=== PATIENT | female | born 1960 | race Caucasian/White ===

== ENCOUNTER 2020-04-30 08:31 | Emergency (ER) | payer BC, SELFPAY ==
--- NOTE | ~2020-04-30 | XR_ITS ---
XR wrist LT min 3V DATE: 04/30/2020 09:02 INDICATION: Fall one day ago. Lateral pain, swelling, bruising TECHNIQUE: 4 views COMPARISON: None FINDINGS: There is a minimally dorsally displaced comminuted fractures of the distal radius with evid ence of intra-articular extension. The distal ulna is intact. Radiocarpal alignment is preserved. IMPRESSION: Minimally dorsally displaced distal radial comminuted intra-articular fracture Reviewed, dictated and finalized at location A. TROMECHANICAL TECHNOLOGIST IMPRESSION: Minimally dorsally displaced distal radial comminuted intra-articul ar fracture
--- NOTE | 2020-04-30 08:39 | ED.UPPEXIN ---
HPI - Extremity Injury (Upper) General Chief Complaint: Extremity Injury, Upper Stated Complaint: left hand injury/fall Time Seen by Provider: 04/30/20 08:39 History of Present Illness HPI narrative: 59 yo female w/ h/o htn, hypothyroidism presents to the ED for a wrist injury. She fell onto her outstretched left hand last night. She had pain in the wrist at the time. It has gotten worse since then. Radiates to the elbow. She developed swelling and bruising over the anterior lateral wrist. She has been taking motrin with some relief. No weakness, numbness. Related Data Home Medications Medication Instructions Recorded Confirmed levothyroxine 04/30/20 Allergies Allergy/AdvReac Type Severity Reaction Status Date / Time No Known Allergies Allergy Unverified 09/03/17 08:15 Review of Systems Review of Systems: All systems reviewed & are unremarkable except as noted in HPI and below Constitutional: Constitutional: Denies weakness Cardiovascular: Cardiovascular: Denies chest pain Respiratory: Respiratory: Denies dyspnea Musculoskeletal: Musculoskeletal: Denies back pain Neurologic: Denies headache(s), Denies numbness and Denies weakness FOR[facility]LY [facility] Past Medical History Medical History HTN (hypertension) Hypothyroidism Family History Family History Father Family history of Dellrose's chorea Hypertension Patient's father is Grandparent Family history of malignant neoplasm of cervix Family history of coronary artery disease Diabetes mellitus Social History Social History Smoking status: Never smoker Second hand tobacco smoke exposure: No Alcohol intake: current Exam Const: General: no acute distress and alert Nutritional Appearance: obese Orientation/consciousness: patient oriented x3 Other: oriented x2 HENMT: Head: normal to inspection Other: nontender Resp: Effort & Inspection: normal respiratory effort Cardio: Rate: regular rate Other: 2 + radial pulses bilaterally Skin: Wounds: no wounds Other: Bruising over left anterior lateral wirst Neuro: General: patient oriented x3, moves all extremities and no focal motor deficits Speech: normal speech Extrem: Other: tenderness over distal radius Course Vital Signs Vital signs: Vital Signs Temperature 36.5 C 04/30/20 09:19 Pulse Rate 74 04/30/20 09:19 Respiratory Rate 18 04/30/20 09:19 Blood Pressure 144/62 H 04/30/20 09:19 Pulse Oximetry 99 04/30/20 09:19 Temperature 36.5 C 04/30/20 09:19 Pulse Rate 74 04/30/20 09:19 Respiratory Rate 18 04/30/20 09:19 Blood Pressure 144/62 H 04/30/20 09:19 Pulse Oximetry 99 04/30/20 09:19 MDM - Extremity Injury (Upper) Medical Records Attestation: I reviewed the patient's medical records. Imaging Data Attestation: I personally reviewed and interpreted this imaging study as follows: My impression: comminuted minimally displaced fracture of distal radius Radiologist's impression: ITS Impressions Wrist X-Ray 04/30/20 09:15 IMPRESSION: Minimally dorsally displaced distal radial comminuted intra-articular fracture Discharge Plan Discharge Clinical Impression: Fracture of wrist Qualifiers: Encounter type: initial encounter Fracture type: closed Laterality: left Qualified Code(s): S62.102A - Fracture of unspecified carpal bone, left wrist, initial encounter for closed fracture Patient Disposition: Home, Self-Care Condition: Stable Instructions: Wrist Fracture in Adults (ED) Prescriptions: New hydrocodone-acetaminophen [[place]] 5-325 mg tablet 1 tablet PO Q4H PRN (Reason: pain) Qty: 10 RF: 0 No Action levothyroxine 88 mcg tablet RF: 0 Follow-up/Referrals: Steve Alatorre MD [Primary Care Provider] - Nicola Carbajal MD [
[2020-04-30 09:19] VITALS: BP 144/62; PULSE 74; RESP 18; TEMP 36.5; O2SAT 99
== END 2020-04-30 10:11 | disposition home or self-care (01) ==
PROVIDERS: Emergency Provider Emergency Medicine; PCP Emergency Medicine
DX: S52.572A Other intraarticular fracture of lower end of left radius, initial encounter for closed fracture (principal); I10 Essential (primary) hypertension; E03.9 Hypothyroidism, unspecified; W19.XXXA Unspecified fall, initial encounter
CPT/HCPCS: 29125; 73110; 99284

== ENCOUNTER 2022-06-24 12:59 | Observation (INO) | payer BC, SELFPAY ==
[2022-06-24] VITALS (27 sets, daily range): BP systolic 114–163; BP diastolic 52–89; PULSE 67–82; RESP 11–21; TEMP 36.6–36.9; O2SAT 95–100; BMI 32.4
--- NOTE | ~2022-06-24 | CT_ITS ---
EXAMINATION: CTA BRAIN/CAROTID DATE: 06/24/2022 16:18 INDICATION: Acute altered mental status TECHNIQUE: Computed tomographic angiography (CTA) of the head and neck was performed with 100 mL Omni paque-350 intravenous contrast. Multiplanar reconstructions and maximum intensity projection 3D-recon structions of the carotid arteries and of the intracranial arteries were created by the technologist on a separate workstation. Automated exposure control and iterative reconstruction technique were emp loyed.The dose-length product was 1177.56 mGy-cm. COMPARISON: Head CT dated 06/24/2022 FINDINGS: Carotid arteries: Visualized portion of the thoracic aorta and great vessels arising from the arch are normal in calibe r with no atherosclerotic plaque or dissection. There is small amount of atherosclerotic plaque with 0% stenosis of the right and left carotid bulbs relative to normal distal artery lumen diameter (NASC ET criteria). Calcified mediastinal lymph node consistent with old granulomatous disease. Visualized superior mediastinum and soft tissues of the neck are unremarkable. Visualized portions of the lungs are clear. Intracranial arteries Dense streak artifact centered at the tip of the basilar artery likely representing embolization coil ing of a basilar tip aneurysm. No other aneurysms identified. Atherosclerotic plaque at the bilateral carotid siphons without hemodynamically significant stenosis. There is no hemodynamically significan t stenosis in the vertebral, basilar and internal carotid arteries. Vertebral arteries are codominant . Both A1 and P1 segments are patent. Cerebral arterial arborization appears symmetric. No abnormally enhancing brain lesions. IMPRESSION: 1. 0% stenosis of the right and left carotid bulbs relative to normal distal artery lumen diameter (N ASCET criteria). 2. Metallic density at the tip of the basilar artery likely representing embolization coiling of a ba silar tip aneurysm. Otherwise unremarkable cerebral CT angiogram with no other aneurysms, hemodynamic ally significant stenosis or thrombosis. Reviewed, dictated and finalized at location B. AND GAS PRINCIPAL IMPRESSION: 1. 0% stenosis of the right and left carotid bulbs relative to normal distal ar [place] lumen diameter (NASCET criteria). 2. Metallic density at the tip of the basilar artery likely representing emboli zation coiling of a basilar tip aneurysm. Otherwise unremarkable cerebral CT an giogram with no other aneurysms, hemodynamically significant stenosis or thromb osis.
--- NOTE | ~2022-06-24 | XR_ITS ---
EXAMINATION: XR chest 1V DATE: 06/24/2022 13:38 INDICATION: Altered mental status. Confusion. TECHNIQUE: A single frontal view of the chest was obtained. COMPARISON: Chest single view 01/26/2016 FINDINGS: The chest demonstrates clear lungs without pneumonia, pleural effusion, or pneumothorax. Th e heart size is normal. IMPRESSION: 1. No acute cardiopulmonary disease. Reviewed, dictated and finalized at location A. TRIC TAPE SLITTER
--- NOTE | ~2022-06-24 | CT_ITS ---
Non-contrast Head CT History: Altered mental status, confusion Technique: Axial non-contrast imaging of the brain was performed. Dose reduction technique was used on this scan by utilizing automated exposure control and iterative reconstruction technique. The dose -length product (DLP) was 605.33 mGy-cm. Findings: There is no evidence of intracranial hemorrhage, mass lesion, or acute infarct. There are aneurysm coils in the region of the [place]. Brain parenchyma appears normal. The ventricle s and subarachnoid spaces are normal in size. The calvarium appears normal. The visualized paranasa l sinuses and mastoid air cells are clear. Impression: No acute abnormality seen. Aneurysm coils in the [place] region with associated streak artifact. Reviewed, dictated and finalized at location M. ANALYTICS ARCHITECT Impression: No acute abnormality seen. Aneurysm coils in the [place] region with associated streak artifact.
--- NOTE | 2022-06-24 13:05 | ECG_ITS ---
Measurements Intervals [place] Rate: 67 P: 17 MT: 200 QRS: 34 QRSD: 93 T: 38 QT: 363 QTc: 384 Interpretive Statements SINUS RHYTHM BASELINE WANDER- II, III, AVR, AVL, AVF, V1 NORMAL ECG NO PREVIOUS ECG AVAILABLE FOR COMPARISON Electronically Signed On 06-24-2022 13:59:45 [employer] by Derek Jesus D.O.
[2022-06-24 13:12] LABS: Glucose Point of Care 85 mg/dl (65-105)
[2022-06-24 14:03] LABS: Basophils Absolute Auto 0.1 K/mm3 (0.0-0.1); Basophils Percent Auto 0.8 % (0.2-1.2); Eosinophils Absolute Auto 0.1 K/mm3 (0-0.3); Eosinophils Percent Auto 1.2 % (0-4.4); Hematocrit 41.5 % (37.0-47.0); Hemoglobin 13.4 g/dL (12.0-15.0); Immature Granulocyte Absolute 0.08 K/mm3 (0.00-0.031); Immature Granulocyte Percent A 0.9 % (0-0.5); Lymphocytes Absolute Auto 1.78 K/mm3 (0.9-3.2); Lymphocytes Percent Auto 19.8 % (18.3-44.2); Mean Corpuscular HGB Conc 32.3 g/dl (32-36); Mean Corpuscular Hemoglobin 28.8 pg (26-34); Mean Corpuscular Volume 89.1 fl (80-100); Mean Platelet Volume 10.1 fl (7.4-10.4); Monocytes Absolute Auto 0.8 K/mm3 (0.1-0.6); Monocytes Percent Auto 8.7 % (2.6-8.5); Neutrophils Absolute Auto 6.2 K/mm3 (1.3-6.7); Neutrophils Percent Auto 68.6 % (45.5-73.1); Platelet Count Result 238 k/mm3 (150-375); Red Blood Count 4.66 M/mm3 (4.2-5.4); Red Cell Distribution Width 12.2 % (11.5-14.5)
[2022-06-24 14:14] LABS: Alanine Aminotransferase 40 U/L (6-35); Albumin Level 4.2 g/dL (3.5-5.1); Alkaline Phosphatase 75 U/L (38-126); Anion Gap 7 mmol/L (8-16); Aspartate Amino Transferase 33 U/L (14-36); Bilirubin,Total 0.4 mg/dL (0.2-1.3); Blood Urea Nitrogen 20 mg/dL (7-17); Carbon Dioxide 27 mmol/L (22-30); Chloride 107 mmol/L (98-107); Estimated CRCL calculation 69 ml/min; Estimated Glomerular Filt Rate > 60; Glucose 95 mg/dL (65-110); Potassium 4.1 mmol/L (3.4-5.0); Sodium 141 mmol/L (137-145)
[2022-06-24 14:15] LABS: Partial Thromboplastin Time 30.4 SECONDS (22.3-36.8)
[2022-06-24 14:25] LABS: Troponin I < 0.012 ng/mL (0.000-0.034)
--- NOTE | 2022-06-24 14:37 | ED.AMS ---
HPI - Altered Mental Status General Chief Complaint: Altered Mental Status Stated Complaint: AMS Time Seen by Provider: 06/24/22 14:21 Source: family Mode of arrival: ambulatory Limitations: altered mental status (Pt with memory loss) History of Present Illness HPI narrative: This 61 year old female patient with significant PMH of brain aneurysm s/p coiling at [facility] a couple of years ago, presents to the ER brought by her spouse with complaints of acute memory loss. Last known well was now 2.5-3 hrs ago. She was at [employer] and was working out when she suddenly forgot what she was doing and messaged her spouse who then called her and she was unaware of what she was doing, how to get home, and cannot remember anything about today or yesterday. She continually asks her spouse the same questions of what is going on, where she is and why is she here. She is alert and oriented to her name and birthday only for me, and answers that it is 2006. She remembers no events of this morning and afternoon to this point. She has not had any head injuries and no trauma. No CP, dyspnea. MD complaint: altered mental status Onset (ago): hour(s) (2-3) Timing confirmed by: spouse Consistency of symptoms: constant Associated symptoms: denies other symptoms Related Data Home Medications Medication Instructions Recorded Confirmed aspirin 325 mg tablet 325 mg PO DAILY 12/04/21 05/15/22 cholecalciferol (vitamin D3) 50 50 mcg PO DAILY 12/04/21 05/15/22 mcg (2,000 unit) capsule magnesium 200 mg tablet 400 mg PO DAILY 12/04/21 05/15/22 omega-3 fatty acids 1,000 mg 1,000 mg PO DAILY 12/04/21 05/15/22 capsule omeprazole 20 mg capsule,delayed 20 mg PO DAILY 03/14/22 05/15/22 release Allergies Allergy/AdvReac Type Severity Reaction Status Date / Time No Known Allergies Allergy Verified 05/15/22 08:13 Review of Systems Review of Systems: All systems reviewed & are unremarkable except as noted in HPI and below PMFSH Past Medical History Medical History Allergies Anemia Arthritis Brain aneurysm History of multiple miscarriages HTN (hypertension) Hypothyroidism Left wrist fracture Mixed hyperlipidemia On statin therapy Thyroid disorder Surgical History Surgical History Hx of cholecystectomy Hx of wisdom tooth extraction S/P appendectomy S/P coil embolization of cerebral aneurysm S/P dilation and curettage x2 S/P endometrial ablation S/P wrist surgery Tubal ligation status Family History Family History Father Family history of Otoe's chorea Hypertension Patient's father is Grandparent Family history of malignant neoplasm of cervix Family history of coronary artery disease Diabetes mellitus Social History Social History Social History: Smoking status: Never smoker Second hand tobacco smoke exposure: No Alcohol intake: current Alcohol use details: Occasionally Substance use: never Substance use type: does not use Living arrangements: with family Occupation/Education: occupation Gender identity (if verbalized by the patient): Female Sexual Orientation (if Verbalized by the Patient): Straight or Heterosexual Exam Const: General: healthy appearing, alert and confusion Nutritional Appearance: well nourished Orientation/consciousness: No patient oriented x3 (to self and birthdate only.) Limitations: altered mental status (Pt. having acute amnesia.) HENMT: Head: normal to inspection Face/Nose/Sinus: Normal external nose present Face and sinus: normal facial exam Mouth: Yes Normal oral and palatal mucosa present and Yes moist mucous membranes Teeth and gingiva: dentition normal Throat: posterior oropharynx normal and uvula midl
[2022-06-24] MEDS: ACETAMINOPHEN 500 MG TABLET 1000 MG PO (16:46)
[2022-06-24 18:33] LABS: Influenza A QL RT-PCR Negative (Negative); Influenza B QL RT-PCR Negative (Negative); SARS-CoV-2 RNA PCR Negative
--- NOTE | 2022-06-24 22:00 | PM.IMHP ---
H&P: HPI History of Present Illness Date/Time: 06/24/22 22:00 Chief Complaint: Confusion. Narrative: This is a pleasant 61-year-old female with history of cerebral aneurysm status post coiling, hypertension, hyperlipidemia, and hypothyroidism who presented to the emergency department via private vehicle for evaluation of confusion. Patient provides the following history. Her fiance provided additional information due to the patient's confusion regarding events that transpired earlier today. Didier reports that she was in her usual state of health this morning and she went to the gym. While working out she suddenly for got which she was doing and message her fiance that she was confused, did not know where she was, why she was there, or how she was supposed to get home. She was given answers and continued to repeat the same questions over and over again. She had never exhibited similar symptoms in the past. No recent illnesses. There was no loss of consciousness. She has not had any recent accidents or head trauma. No drug or alcohol abuse. She denies recent change in medications. On arrival to the emergency department she was able to give her name and birthday and she reported the year as 2006. Blood pressure on arrival was 156/89. Her other vital signs were stable and she was afebrile. Brain CT showed no acute abnormality. CT of the head and neck showed 0% stenosis of the bilateral carotid bulbs, metallic density at the tip of the basilar artery consistent with history of coiling aneurysm, and an otherwise unremarkable cerebral CT angiogram. Labs did not show any significant abnormalities. EKG was unremarkable. She is being admitted in this setting for close monitoring overnight and neurology consultation. At the time my evaluation she still does not recall the events that transpired today. Review of Systems Review of Systems: Reviewed but not reliable given confusion. [facility] Past Medical History Medical History (Updated 06/24/22 @ 22:52 by Pilar Robles PA-C) Allergies Anemia Arthritis Brain aneurysm History of multiple miscarriages Hypertension Hypothyroidism Mixed hyperlipidemia Surgical History Surgical History (Updated 06/24/22 @ 22:51 by Pilar Robles PA-C) History of appendectomy History of cerebral aneurysm repair History of cholecystectomy History of dilation and curettage History of endometrial ablation History of tubal ligation Family History Family History Father Family history of Marvin's chorea Patient's father is Hypertension Parents Grandparent Diabetes mellitus Family history of malignant neoplasm of cervix Family history of coronary artery disease Mother Parents Social History Social History (Updated 06/25/22 @ 00:27 by Pilar Robles PA-C) Social History: Surrogate medical decision maker: Igor Hammer, narciso. Code status: Full code. Smoking status: Never smoker Second hand tobacco smoke exposure: No Alcohol intake: never Alcohol use details: Occasionally Substance use: never Substance use type: does not use Lack of Transportation: No Lack of Food: Never True Current Housing: I Have Housing Concerned About Future Housing: No Difficulty Paying Gas/Electric Bills: No Difficulty Paying for Meds: No Currently Unemployed: No Education: Bachelor's Degree Difficulty w/ Childcare or Family Care: No Additional living arrangements comments: Lives in [place]. Spiritual care concerns: No Meds Home Medications and Allergies Home Medications Medication Instructions Recorded Confirmed Type aspirin 325 mg tablet 325 mg PO DAILY 12/04/21 06/24/22 History cholecalciferol (vitamin D3) 50 50 mcg PO DAILY 12/04/21 06/24/22 History mcg (2,000 unit) capsule omeprazole 20 mg capsule,delayed 20 mg PO DAILY 03/14/22 06/24/22 History release
--- NOTE | 2022-06-24 22:07 | ADMGEN ---
This patient, Consuelo Hammer, was admitted to [facility] Surg Room 307-02. Patient/family oriented to hospital policies and general routines including ID bracelet, bed and alarms, visiting hours, pain management, procedures, bathroom and other care routines, personal items, smoking policy, room service/diet, and visiting hours. Information on how to activate the Rapid Response Team has been discussed. Patient/Family are encouraged to report perceived risks to care and to ask questions if they do not understand what they are told or what they should do.
[2022-06-24] MEDS: HYDROcodone/acetaminophen (*CRX) 5-325 MG TABLET 1 TAB PO (22:26)
[2022-06-25] VITALS (10 sets, daily range): BP systolic 102–125; BP diastolic 50–66; PULSE 61–78; RESP 16–18; TEMP 35.8–37.1; O2SAT 97–100
[2022-06-25] MEDS: LIOTHYRONINE SODIUM 5 MCG TABLET BY MOUTH (05:48)
[2022-06-25] MEDS: LEVOTHYROXINE SODIUM 88 MCG TABLET BY MOUTH (05:48)
[2022-06-25 06:42] LABS: Anion Gap 6 mmol/L (8-16); Blood Urea Nitrogen 17 mg/dL (7-17); Calcium 8.8 mg/dL (8.4-10.2); Carbon Dioxide 26 mmol/L (22-30); Chloride 108 mmol/L (98-107); Estimated CRCL calculation 62 ml/min; Estimated Glomerular Filt Rate > 60; Glucose 80 mg/dL (65-110); Magnesium 2.2 mg/dL (1.6-2.3); Potassium 3.9 mmol/L (3.4-5.0); Sodium 140 mmol/L (137-145)
[2022-06-25] MEDS: ACETAMINOPHEN 325 MG TABLET 650 MG PO (09:29)
[2022-06-25] MEDS: PANTOPRAZOLE 40 MG TABLET PO (09:30)
[2022-06-25] MEDS: CHOLECALCIFEROL 1,000 UNITS TABLET 2000 UNITS PO (09:30)
[2022-06-25] MEDS: ROSUVASTATIN 5 MG TABLET BY MOUTH (09:30)
[2022-06-25] MEDS: ASPIRIN 325 MG TABLET PO (09:30)
[2022-06-25] MEDS: METOPROLOL TARTRATE 50 MG TAB BY MOUTH ×3 (09:30→21:15)
[2022-06-25] MEDS: HYDROcodone/acetaminophen (*CRX) 5-325 MG TABLET 1 TAB PO (11:29)
[2022-06-25 12:22] LABS: Free T4 Free Thyroxine 1.04 ng/mL (0.78-2.19)
--- NOTE | 2022-06-25 12:44 | WPDNEURCNPN ---
Assessment and Plan Assessment and plan (1) Transient global amnesia: Code(s): G45.4 - Transient global amnesia Status: Acute Plan 1 transient global amnesia 2 hypertension 3 hyperlipidemia 4 hypothyroidism 5 extremely unlikely but obtain the EEG to rule out the possibility of any abnormality. Patient and her were both advised that we are dealing with a transient global amnesia the while itself is intact she will continue the same medication will obtain the EEG and she should follow up with her surgeon at [facility] all the pros and cons of this particular problem were also discussed Consult date: 06/25/22 Reason for consult: 61 years old lady admitted to the hospital through the emergency room for the complaints of in the mental status with memory loss in addition to the history of brain aneurysm for which she has undergone coiling under central stenosis the hospital neurosurgical service. She complained of acute memory loss for almost 2 and half [id number] ago reportedly she was at [employer] and was working out when she suddenly forgot what she was doing and and message to her a spouse who then called her and found that she was unaware of what she was doing, how to get home and was unable to remember anything on the day of admission or yesterday and she kept asking same question again and again give no history of recent head trauma no history of seizures her medications included aspirin 325 mg daily he had history of hypertension hypothyroidism, his statin therapy and coil embolization of cerebral aneurysm also no smoking but occasionally alcohol intake initial exam in the ER was nonfocal, emergency room personnel contacted the sent to [facility] who suggested to keep her here we obtain the CTA of the brain documented any new involvement of the vasculature but it documented only metallic density at the tip of the basilar artery Prieb presenting embolization coiling of a basilar tip aneurysm but no other abnormalities patient will continue on aspirin 325 mg daily and all her other medication as such HPI: Consuelo Hammer is a 61 year old female Review of Systems Review of Systems: All systems reviewed & are unremarkable except as noted in HPI and below PMFSH Past Medical History Medical History (Updated 06/24/22 @ 22:52 by Pilar Robles PA-C) Allergies Anemia Arthritis Brain aneurysm History of multiple miscarriages Hypertension Hypothyroidism Mixed hyperlipidemia Surgical History Surgical History (Updated 06/24/22 @ 22:51 by Pilar Robles PA-C) History of appendectomy History of cerebral aneurysm repair History of cholecystectomy History of dilation and curettage History of endometrial ablation History of tubal ligation Family History Family History Father Family history of Storey's chorea Patient's father is Hypertension Parents Grandparent Diabetes mellitus Family history of malignant neoplasm of cervix Family history of coronary artery disease Mother Parents Social History Social History (Updated 06/25/22 @ 00:27 by Pilar Robles PA-C) Social History: Surrogate medical decision maker: Igor Hammer, son. Code status: Full code. Smoking status: Never smoker Second hand tobacco smoke exposure: No Alcohol intake: never Alcohol use details: Occasionally Substance use: never Substance use type: does not use Lack of Transportation: No Lack of Food: Never True Current Housing: I Have Housing Concerned About Future Housing: No Difficulty Paying Gas/Electric Bills: No Difficulty Paying for Meds: No Currently Unemployed: No Education: Bachelor's Degree Difficulty w/ Childcare or Family Care: No Additional living arrangements comments: Lives in [place]. Spiritual care concerns: No Meds Home Medication
--- NOTE | 2022-06-25 13:15 | PM.IMPN ---
Progress Note: A&P Assessment and Plan (1) Transient global amnesia: Code(s): G45.4 - Transient global amnesia Status: Acute (2) Hypertension: Code(s): I10 - Essential (primary) hypertension Status: Acute (3) Mixed hyperlipidemia: Code(s): E78.2 - Mixed hyperlipidemia Status: Acute (4) Hypothyroidism: Qualifiers: Hypothyroidism type: acquired Qualified Code(s): E03.9 - Hypothyroidism, unspecified Code(s): E03.9 - Hypothyroidism, unspecified Status: Acute Plan The patient presented to the ED today for evaluation of confusion as per HPI. Transient global amnesia is a strong possibility given her amnesia, repetitive questioning, and the fact that she was exercising at the onset. Labs and imaging were personally reviewed and there are no significant or acute findings to explain her confusion. She was negative for influenza and COVID. EKG showed a sinus rhythm and there have been no documented episodes of cardiac dysrhythmia. She will be monitored on telemetry overnight. Continue neurologic checks q.4 hours. Check TSH, urine drug screen, and B12. Dr. Bedolla (neurology) has been consulted and his opinion is greatly appreciated. Blood pressures were reviewed and they were initially in the 140s to 150 systolic but they have improved. Continue antihypertensives and monitor blood pressures closely. She was recently started on liothyronine in addition to levothyroxine thus will check TSH, T3, and T4. Her home medications will be reviewed and resumed as appropriate. 06/25/2022 interval history: Patient presented with transient global amnesia patient states see still does not remember detail of yesterday however currently she has no problem and she has her baseline, CTA of the head is essentially normal without any stenosis or lesion, patient cannot have MRI because of the previous brain surgery, patient seen by Neurology and recommended to further evaluate patient will benefit from EEG, patient vitamin B12 is normal, patient TSH is normal, will follow-up, will have PT OT evaluate the patient and further recommendation to follow. Subjective Date/time seen: 06/25/22 13:15 Confusion. HPI-Narrative: This is a pleasant 61-year-old female with history of cerebral aneurysm status post coiling, hypertension, hyperlipidemia, and hypothyroidism who presented to the emergency department via private vehicle for evaluation of confusion. Patient provides the following history. Her fiance provided additional information due to the patient's confusion regarding events that transpired earlier today. Didier reports that she was in her usual state of health this morning and she went to the gym. While working out she suddenly for got which she was doing and message her fiance that she was confused, did not know where she was, why she was there, or how she was supposed to get home. She was given answers and continued to repeat the same questions over and over again. She had never exhibited similar symptoms in the past. No recent illnesses. There was no loss of consciousness. She has not had any recent accidents or head trauma. No drug or alcohol abuse.? She denies recent change in medications. On arrival to the emergency department she was able to give her name and birthday and she reported the year as 2006. Blood pressure on arrival was 156/89. Her other vital signs were stable and she was afebrile. Brain CT showed no acute abnormality. CT of the head and neck showed 0% stenosis of the bilateral carotid bulbs, metallic density at the tip of the basilar artery consistent with history of coiling aneurysm, and an otherwise unremarkable cerebral CT angiogram. Labs did not show any significant abnormalities. EKG was unremarkable. She is being admitted in this setting for close monitoring overnight and neurology consultation. At the time my evaluation she still does not recall the events that transpired today. 06/25/2022 interv
--- NOTE | 2022-06-25 15:57 | PM.DS ---
DS: Admitting Diagnosis Discharge Date 06/28/2022 Admitting Diagnosis confused DS: Discharge Diagnosis Discharge Diagnosis (1) Transient global amnesia: Code(s): G45.4 - Transient global amnesia Status: Acute (2) Hypertension: Code(s): I10 - Essential (primary) hypertension Status: Acute (3) Mixed hyperlipidemia: Code(s): E78.2 - Mixed hyperlipidemia Status: Acute (4) Hypothyroidism: Qualifiers: Hypothyroidism type: acquired Qualified Code(s): E03.9 - Hypothyroidism, unspecified Code(s): E03.9 - Hypothyroidism, unspecified Status: Acute Plan The patient presented to the ED today for evaluation of confusion as per HPI. Transient global amnesia is a strong possibility given her amnesia, repetitive questioning, and the fact that she was exercising at the onset. Labs and imaging were personally reviewed and there are no significant or acute findings to explain her confusion. She was negative for influenza and COVID. EKG showed a sinus rhythm and there have been no documented episodes of cardiac dysrhythmia. She will be monitored on telemetry overnight. Continue neurologic checks q.4 hours. Check TSH, urine drug screen, and B12. Dr. Bedolla (neurology) has been consulted and his opinion is greatly appreciated. Blood pressures were reviewed and they were initially in the 140s to 150 systolic but they have improved. Continue antihypertensives and monitor blood pressures closely. She was recently started on liothyronine in addition to levothyroxine thus will check TSH, T3, and T4. Her home medications will be reviewed and resumed as appropriate. 06/25/2022 interval history: Patient presented with transient global amnesia patient states see still does not remember detail of yesterday however currently she has no problem and she has her baseline, CTA of the head is essentially normal without any stenosis or lesion, patient cannot have MRI because of the previous brain surgery, patient seen by Neurology and recommended to further evaluate patient will benefit from EEG, patient vitamin B12 is normal, patient TSH is normal, will follow-up, will have PT OT evaluate the patient and further recommendation to follow. DS: Summary Hospital Course Reason for hospitalization: Confusion. Narrative: This is a pleasant 61-year-old female with history of cerebral aneurysm status post coiling, hypertension, hyperlipidemia, and hypothyroidism who presented to the emergency department via private vehicle for evaluation of confusion. Patient provides the following history. Her fiance provided additional information due to the patient's confusion regarding events that transpired earlier today. Didier reports that she was in her usual state of health this morning and she went to the gym. While working out she suddenly for got which she was doing and message her fiance that she was confused, did not know where she was, why she was there, or how she was supposed to get home. She was given answers and continued to repeat the same questions over and over again. She had never exhibited similar symptoms in the past. No recent illnesses. There was no loss of consciousness. She has not had any recent accidents or head trauma. No drug or alcohol abuse.? She denies recent change in medications. On arrival to the emergency department she was able to give her name and birthday and she reported the year as 2006. Blood pressure on arrival was 156/89. Her other vital signs were stable and she was afebrile. Brain CT showed no acute abnormality. CT of the head and neck showed 0% stenosis of the bilateral carotid bulbs, metallic density at the tip of the basilar artery consistent with history of coiling aneurysm, and an otherwise unremarkable cerebral CT angiogram. Labs did not show any significant abnormalities. EKG was unremarkable. She is being admitted in this setting for close monitoring overnight and neurology consultation. At th
[2022-06-25] MEDS: polyethylene glycoL 3350 17 GM POWD.PACK PO (17:13)
[2022-06-26] VITALS (7 sets, daily range): BP systolic 122–128; BP diastolic 64–77; PULSE 62–76; RESP 12–16; TEMP 36.2–36.6; O2SAT 98–99
[2022-06-26 05:44] LABS: Amphetamine Screen Urine Negative (Negative); Barbiturate Screen Urine Negative (Negative); Benzodiazepines Screen Urine Negative (Negative); Cannabinoid Screen Urine Negative (Negative); Cocaine Screen Urine Negative (Negative); Methadone Screen Urine Negative (Negative); Opiate Screen Urine Positive (Negative); Phencyclidine Screen Urine Negative (Negative)
[2022-06-26] MEDS: LEVOTHYROXINE SODIUM 88 MCG TABLET BY MOUTH (05:47)
[2022-06-26] MEDS: LIOTHYRONINE SODIUM 5 MCG TABLET BY MOUTH (05:47)
[2022-06-26 06:24] LABS: Hematocrit 39.7 % (37.0-47.0); Hemoglobin 12.9 g/dL (12.0-15.0); Mean Corpuscular HGB Conc 32.5 g/dl (32-36); Mean Corpuscular Hemoglobin 28.9 pg (26-34); Mean Corpuscular Volume 88.8 fl (80-100); Mean Platelet Volume 10.1 fl (7.4-10.4); Platelet Count Result 228 k/mm3 (150-375); Red Blood Count 4.47 M/mm3 (4.2-5.4); Red Cell Distribution Width 12.1 % (11.5-14.5); White Blood Count 7.7 K/mm3 (4.5-10.0)
[2022-06-26 06:39] LABS: Alanine Aminotransferase 41 U/L (6-35); Albumin Level 3.6 g/dL (3.5-5.1); Alkaline Phosphatase 74 U/L (38-126); Anion Gap 7 mmol/L (8-16); Aspartate Amino Transferase 33 U/L (14-36); Bilirubin,Total 0.5 mg/dL (0.2-1.3); Blood Urea Nitrogen 17 mg/dL (7-17); Calcium 8.6 mg/dL (8.4-10.2); Carbon Dioxide 26 mmol/L (22-30); Chloride 107 mmol/L (98-107); Estimated CRCL calculation 70 ml/min; Estimated Glomerular Filt Rate > 60; Glucose 87 mg/dL (65-110); Magnesium 2.1 mg/dL (1.6-2.3); Sodium 140 mmol/L (137-145)
[2022-06-26] MEDS: PANTOPRAZOLE 40 MG TABLET PO (09:21)
[2022-06-26] MEDS: ROSUVASTATIN 5 MG TABLET BY MOUTH (09:21)
[2022-06-26] MEDS: CHOLECALCIFEROL 1,000 UNITS TABLET 2000 UNITS PO (09:21)
[2022-06-26] MEDS: METOPROLOL TARTRATE 50 MG TAB BY MOUTH (09:21)
[2022-06-26] MEDS: polyethylene glycoL 3350 17 GM POWD.PACK PO (09:21)
[2022-06-26] MEDS: ASPIRIN 325 MG TABLET PO (09:21)
--- NOTE | 2022-06-26 11:32 | WPDNEUROLOGY ---
Neurology EEG Report General Information Date of Study: 06/26/22 TEST eeg DIAGNOSIS Transient global amnesia CONDITION OF RECORDING awake drowsy and sleep EEG NUMBER [id number] CLINICAL HISTORY patient had 1 episode of transient amnesia 2 days ago right now she feels fine. EEG DESCRIPTION basic resting occipital frequency consists of low-voltage 8 to 10 hertz per 2nd alpha admixed with low-voltage 15 to 18 hertz per 2nd beta. Low-voltage beta activity seen diffusely admixed with waxing and waning posterior alpha rhythm during drowsiness. Bilateral symmetrical sleep activity seen during sleep. Hyperventilation not done. Photic stimulation not done. Non paroxysmal. Nonfocal. Nonlateralizing. IMPRESSION Normal record
[2022-06-30 06:16] LABS: Triiodothyronine T3 Free 2.8 pg/mL (2.3-4.2)
== END 2022-06-26 15:05 | disposition home or self-care (01) ==
LOC: ANHED 17:07 → ANH3MEDSUR 06-25 11:33
PROVIDERS: Emergency Medicine; Physician Assistant; Admitting Provider Family Medicine; Emergency Provider Nurse Practitioner Adult Health; PCP Family Medicine; Visit Provider Family Medicine
DX: G45.4 Transient global amnesia (principal); I10 Essential (primary) hypertension; E78.2 Mixed hyperlipidemia; E03.9 Hypothyroidism, unspecified; D64.9 Anemia, unspecified; E78.5 Hyperlipidemia, unspecified; F10.90 Alcohol use, unspecified, uncomplicated; E66.8 Other obesity; R42 Dizziness and giddiness; Z68.33 Body mass index [BMI] 33.0-33.9, adult; Z20.822 Contact with and (suspected) exposure to COVID-19; M19.90 Unspecified osteoarthritis, unspecified site; Z86.79 Personal history of other diseases of the circulatory system; I67.1 Cerebral aneurysm, nonruptured; Z87.898 Personal history of other specified conditions; Z79.82 Long term (current) use of aspirin; Z79.899 Other long term (current) drug therapy
CPT/HCPCS: 36415; 70450; 70496; 70498; 71045; 80048; 80053; 80307; 82607; 82948; 83735; 84439; 84443; 84481; 84484; 85025; 85027; 85610; 85730; 87636; 93005; 95816; 99285; A9270; G0378; Q9967

== ENCOUNTER 2022-10-07 10:27 | Outpatient (CLI) | payer BC, SELFPAY ==
--- NOTE | 2022-10-07 16:58 | P.PCNPFT_ITS ---
PFT Procedure Performed PFT Procedure Performed Plethysmography (Lung Vol) Diffusing Cap (DLCO) Flow Vol Loop Spirometry w/o Bronchodil PFT Interpretation This is a pulmonary function test with spirometry, plethysmography and diffusing capacity. The test was performed and results interpreted in accordance with the 2019 and 2005 ATS/ERS Task Force guidelines respectively using the Global Lung Function Initiative-2012 reference equations. Patient demonstrated good effort and cooperation. Reproducibility criteria were met. The quality of the spirometry maneuver was Grade A. Findings: Spirometry: The contour the inspiratory and expiratory flow tracing are normal. The FVC is 3.08 L, 98% predicted. The FEV1 is 2.50 L, 101% predicted. The FEV1: FVC ratio is 81%. Plethysmography: The total lung capacity is 4.61 L, 91% predicted. The functional residual capacity is 2.10 L, 73% predicted. The residual volume is 1.53 L, 76% predicted. Diffusing capacity: The diffusing capacity unadjusted for hemoglobin and carboxyhemoglobin is 18.3, 85% predicted. The diffusing capacity adjusted for a lveolar volume is 4.55, 103% predicted. Impression: The spirometry is normal without evidence of an obstructive abnormality. The lung volumes are normal. The diffusing capacity is normal. There are no prior studies for comparison
== END 2022-10-07 10:28 | disposition home or self-care (01) ==
LOC: ANHPFT 10:28
PROVIDERS: PCP Family Medicine; Visit Provider Nurse Practitioner Adult Health
DX: R07.89 Other chest pain (principal)
CPT/HCPCS: 94375; 94726; 94729

== ENCOUNTER 2024-01-06 08:13 | Outpatient (CLI) | payer BC, SELFPAY ==
--- NOTE | ~2024-01-06 | CT_ITS ---
CTA brain Ordering provider: Stefanie Zavala PA-C History: . H53.9 - Unspecified visual disturbance . Comparison: June 24, 2022 Technique: CT angiogram head was performed following timed intravenous injection of contrast. Thin sl ice axial images and reformatted coronal images were obtained. Three dimensional reformatted images o f the brain were also obtained using a [employer] workstation. Radiation reduction technique utilized. D LP is 1129.85 mGy-cm. 100 mL Omnipaque 350 was given IV. FINDINGS: --ANTERIOR AND MIDDLE CEREBRAL ARTERIES AND BRANCHES: Normal caliber and contour. --INTERNAL CAROTID ARTERIES: Mild atheromatous disease but no significant stenosis. No occlusion. --BASILAR ARTERY AND BRANCHES: Normal caliber and contour. No atheromatous disease. --POSTERIOR CEREBRAL ARTERIES: Normal caliber and contour --POSTERIOR COMMUNICATING ARTERIES: Not visualized which is probably related to congenital absence or small size. --ANEURYSM: None visualized. --BRAIN: Post coiling changes seen in the basilar tip area. No evidence of acute infarct or hemorrhag e seen in the brain. --BONES AND SUPERFICIAL SOFT TISSUES: Normal. --PARANASAL SINUSES AND MASTOIDS: Well aerated. IMPRESSION: Status post coiling of the basilar tip aneurysm. Otherwise, Normal CTA head. Reviewed, dictated and finalized at location A.
[2024-01-06 09:55] LABS: Estimated Glomerular Filt Rate > 60
== END 2024-01-06 08:14 | disposition home or self-care (01) ==
PROVIDERS: PCP Family Medicine; Visit Provider Student in an Organized Health Care Education/Training Program
DX: H53.9 Unspecified visual disturbance (principal); I67.1 Cerebral aneurysm, nonruptured
CPT/HCPCS: 70496; Q9967

== ENCOUNTER 2024-06-14 14:26 | Observation (INO) | payer BC, SELFPAY ==
--- NOTE | ~2024-06-14 | XR_ITS ---
EXAMINATION: XR chest 1V portable DATE: 06/14/2024 16:40 INDICATION: Mental status change. TECHNIQUE: A single frontal view of the chest was obtained. COMPARISON: Chest single view 06/24/2022 FINDINGS: There is no pneumonia, pleural effusion, or pneumothorax. The heart size is normal. IMPRESSION: 1. No acute cardiopulmonary disease. Reviewed, dictated and finalized at location A. Y HELPER
--- NOTE | ~2024-06-14 | CT_ITS ---
EXAMINATION: CT brain wo con DATE: 06/14/2024 15:13 INDICATION: Altered mental status TECHNIQUE: Computed tomography (CT) of the head was performed without intravenous contrast. Sagittal and coronal reconstructions were performed. The mA was adjusted according to patient size. Iterative reconstruction technique was employed. The dose-length product was 605.33 mGy-cm. COMPARISON: head CT dated 01/06/2024 FINDINGS: Again seen is prominent metallic streak artifact surrounding likely aneurysm coils in the region of t he basilar tip. No acute intracranial hemorrhage, acute infarction or abnormal extra axial fluid sherwin ection. Ventricles are normal and symmetric. No mass/mass effect. The orbits, paranasal sinuses and m astoid air cells are normal. IMPRESSION: 1. Likely aneurysm coils in the region of the basilar tip. No acute intracranial process. Reviewed, dictated and finalized at location B. ENGINEER FREIGHT IMPRESSION: 1. Likely aneurysm coils in the region of the basilar tip. No acute intracrania l process.
--- NOTE | ~2024-06-14 | CT_ITS ---
CTA brain carotid Ordering provider: Gila Samuel MD History: . Amnesia . Comparison: 01/06/2024 Technique: CT angiogram head and neck was performed following timed intravenous injection of contrast . Thin slice axial images and reformatted coronal images were obtained. Three dimensional reformatted images of the brain were also obtained using a [employer] workstation. DLP: 1131 mGy-cm FINDINGS: HEAD: --ANTERIOR AND MIDDLE CEREBRAL ARTERIES AND BRANCHES: Normal caliber and contour. --INTRACRANIAL INTERNAL CAROTID ARTERIES: Mild atheromatous disease but no significant stenosis. No o cclusion. --BASILAR ARTERY AND BRANCHES: Post endovascular coiling of the tip. Otherwise, unremarkable. No disc rete aneurysmal dilatation or atheromatous disease along its course. --POSTERIOR CEREBRAL ARTERIES: Unremarkable. --POSTERIOR COMMUNICATING ARTERIES: Not well visualized likely related to congenital absence or small size. --ANEURYSM: None visualized. --BRAIN: Please refer to report of CT head performed the same day. --BONES AND SUPERFICIAL SOFT TISSUES: Please refer to report of CT head performed the same day. --PARANASAL SINUSES AND MASTOIDS: Please refer to report of CT head done the same day. NECK: --RIGHT CERVICAL CAROTID SYSTEM: No significant atheromatous disease of the carotid bulb and proximal internal carotid artery. Percent stenosis per NASCET criteria is 0%. No carotid dissection. --LEFT CERVICAL CAROTID SYSTEM: Trace atheromatous disease of the carotid bulb and proximal internal carotid artery without significant stenosis. Percent stenosis per NASCET criteria is 0%. No carotid dissection. --VERTEBRAL ARTERIES: Unremarkable. Normal caliber and contour. --VISUALIZED AORTIC ARCH AND BRANCHING VESSELS: Mild atheromatous disease but no significant stenosis . --SOFT TISSUES: Heterogeneous appearance of the thyroid gland. --CERVICAL SPINE: Age appropriate degenerative changes. IMPRESSION: 1. Post aneurysm coiling. 2. Otherwise, unremarkable CTA of the head and neck, as detailed above. 3. Percent stenosis per NASCET criteria is 0% Reviewed, dictated and finalized at location A. A PRODUCTION OPERATOR
[2024-06-14 14:33] LABS: Glucose Point of Care 90 mg/dl (65-105)
[2024-06-14 14:35] VITALS: BP 147/76; PULSE 65; RESP 18; TEMP 36.7; O2SAT 99
--- NOTE | 2024-06-14 14:48 | ECG_ITS ---
Test Date: 2024-06-14 14:57:07 Measurements Intervals [place] Rate: 58 P: 107 ME: 177 QRS: 83 QRSD: 93 T: 51 QT: 389 QTc: 382 Interpretive Statements SINUS BRADYCARDIA POSSIBLE LEFT ATRIAL ENLARGEMENT [-0.1mV P WAVE IN V1/V2] LOW QRS VOLTAGE IN EXTREMITY LEADS [QRS DEFLECTION < 0.5 mV IN LIMB LEADS] No previous ECG available for comparison Electronically Signed On 06-14-2024 21:47:40 DELIMER by Trisha Galindo M.D.
[2024-06-14 14:59] VITALS: BP 142/72; PULSE 59; RESP 20; O2SAT 100
--- NOTE | 2024-06-14 15:08 | ED_ITS ---
HPI - Altered Mental Status General Chief Complaint: Altered Mental Status Stated Complaint: AMS Time Seen by Provider: 06/14/24 15:07 Source: patient Mode of arrival: ambulatory Limitations: no limitations History of Present Illness HPI narrative: 63 years old white female came to the ED with her son by private car because of acute change of mental status. Patient last time was seen at her normal pace of health at 11:00 a.m.. At 1:30 a.m. patient text her son for none since questions, later the son noticed that patient is confused does not make sense. On arrival to the ED patient denies any fever, chills, nausea, vomiting, headache, shortness of breath, chest pain, back pain. Patient's family telling me that patient had similar symptoms 2 years ago with a diagnosis of transient global amnesia. Patient had history of cerebral aneurysm 5-6 years ago Related Data Home Medications ?Medication ?Instructions ?Recorded ?Confirmed ?Last Taken ?Type aspirin 325 mg tablet 325 mg PO DAILY 12/04/21 05/11/24 06/23/22 History cholecalciferol (vitamin D3) 50 50 mcg PO DAILY 12/04/21 05/11/24 06/24/22 History mcg (2,000 unit) capsule Allergies Allergy/AdvReac Type Severity Reaction Status Date / Time No Known Allergies Allergy Verified 05/11/24 09:11 Review of Systems 2 Review of Systems: All systems reviewed & are unremarkable except as noted in HPI and below PMFSH Past Medical History Medical History Postmenopausal bleeding (09/18/17) Menopausal state Hypertension History of multiple miscarriages Allergies Anemia Arthritis Mixed hyperlipidemia Brain aneurysm Hypothyroidism Surgical History Surgical History History of cerebral aneurysm repair History of endometrial ablation History of tubal ligation History of dilation and curettage History of appendectomy History of cholecystectomy Family History Family History Father Family history of [place]'s chorea Patient's father is Hypertension Parents Grandparent Diabetes mellitus Family history of malignant neoplasm of cervix Family history of coronary artery disease Mother Parents Social History Social History Social History: Surrogate medical decision maker: Igor Hammer, narciso. Code status: Full code. 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 Gender identity (if verbalized by the patient): Female Sexual Orientation (if Verbalized by the Patient): Straight or Heterosexual Spiritual care concerns: No Exam 2 Narrative: General appearance: Well-developed, well-nourished Skin: Normal color Head: Normocephalic, nontraumatic Eyes: Clear conjunctiva ENT: Oropharynx normal, ears normal, nose normal Neck: Supple, nontender Chest and respiratory: Airway patent, no respiratory distress, no accessory muscle use Heart: Regular rate/rhythm Abdomen: Soft, nontender, no organomegaly, quiet bowel sounds Musculoskeletal: Normal range of motion, nontender back Neurologic: Alert and oriented to her name and family names only Course Consultations Consultation #1: DR THOMPSON REQUESTED MRA OF THE HEAD AND NECK AND EEG ON ADMISSION Date: 06/14/24 Time: 16:37 Vital Signs Vital signs: Vital Signs Temperature 36.7 C 06/14/24 14:35 Pulse Rate 65 06/14/24 14:35 Respiratory Rate 18 06/14/24 14:35 Blood Pressure 147/76 H 06/14/24 14:35 Pulse Oximetry 99 06/14/24 14:35 Oxygen Delivery Room Air 06/14/24 14:35 Temperature 36.7 C 06/14/24 14:35 Pulse Rate 59 L 06/14/24 14:59 Respiratory Rate 20 06/14/24 14:59 Blood Pressure 142/72 H 06/14/24 14:59 Pulse Oximetry 98 06/14/24 15:25 Oxygen Delivery Room Air 06/14/24 15:25 MDM - Altered Mental Status Lab Data 06/14/24 15:05 06/14/24 15:05 Labs: Lab Results 06/14/24 06/14/24 06/14/24 Range/Units 14:30 15:05 16:15 WBC 9.1 (4.5-10.0) K/mm3 RBC 4.74 (4.2-5.4) M/mm3 Hgb 14.1 (12.0-15.0) g/dL Hct 43.6 (37.0-47.0) % MCV 92.0 (80-100) fl MCH 29.7 (26-34) pg MCHC 32.3 (32-36) g/dl RDW 12.2 (11.5-14.5) % Plt Count 223 (150-375) k/mm3 MPV 10.4 (7.4-10.4) fl Immature Gran % (Auto) 0.7 H (0-0.5) % Neut % (Auto) 64.4 (45.5-73.1) % Lymph % (Auto) 22.5 (18.3-44.2) % [place] % (Auto) 8.8 H (2.6-8.5) % Eos % (Auto) 2.6 (0-4.4) % Baso % (Auto) 1.0 (0.2-1.2) % Lymph # (Auto) 2.05 (0.9-3.2) K/mm3 [place] # (Auto) 0.8 H (0.1-0.6) K/mm3 Eos # (Auto) 0.2 (0-0.3) K/mm3 Baso # (Auto) 0.1 (0.0-0.1) K/mm3 Abs Immat Gran (auto) 0.06 H (0.00-0.031) K/mm3 Absolute Neuts (auto) 5.9 (1.3-6.7) K/mm3 Absolute Nucleated RBC 0.000 (0.0-0.012) K/mm3 Nucleated RBC % 0.0 (0.0-0.2) % PT 12.8 (11.1-14.7) Seconds INR 0.9 APTT 29.0 (22.3-36.8) Seconds Sodium 140 (137-145) mmol/L Potassium 4.3 (3.4-5.0) mmol/L Chloride 105 (98-107) mmol/L Carbon Dioxide 27 (22-30) mmol/L Anion Gap 8 (4-12) mmol/L BUN 24 H (7-17) mg/dL Creatinine 0.76 (0.7-1.0) mg/dL Estim Creat Clear Calc 68 ml/min Estimated GFR > 60 (59 - ) Glucose 82 (65-110) mg/dL POC Capillary Glucose 90 (65-105) mg/dl Calcium 9.1 (8.4-10.2) mg/dL Total Bilirubin 0.4 (0.2-1.3) mg/dL AST 36 (14-36) U/L ALT 46 H (6-35) U/L Alkaline Phosphatase 75 (38-126) U/L Total Protein 7.0 (6.3-8.2) g/dL Albumin 4.2 (3.5-5.1) g/dL Urine Color (Yellow) Urine Appearance (Clear) Urine pH (5.0-9.0) Ur Specific [place] (1.001-1.035) Urine Protein (Negative) mg/dL Urine Glucose (UA) (Negative) mg/dL Urine Ketones (Negative) mg/dL Ur Blood (Man) (Negative) Urine Nitrate (Negative) Urine Bilirubin (Negative) Urine Urobilinogen (<2.0) mg/dL Leukocyte Esterase Rfl (Negative) PRECIOUS/UL Influenza A (RT-PCR) Negative (Negative) Influenza B (RT-PCR) Negative (Negative) RSV (RT-PCR) Negative (Negative) SARS-CoV-2 RNA (RT-PCR) Negative (Negative) 06/14/24 Range/Units 16:59 WBC (4.5-10.0) K/mm3 RBC (4.2-5.4) M/mm3 Hgb (12.0-15.0) g/dL Hct (37.0-47.0) % MCV (80-100) fl MCH (26-34) pg MCHC (32-36) g/dl RDW (11.5-14.5) % Plt Count (150-375) k/mm3 MPV (7.4-10.4) fl Immature Gran % (Auto) (0-0.5) % Neut % (Auto) (45.5-73.1) % Lymph % (Auto) (18.3-44.2) % [place] % (Auto) (2.6-8.5) % Eos % (Auto) (0-4.4) % Baso % (Auto) (0.2-1.2) % Lymph # (Auto) (0.9-3.2) K/mm3 [place] # (Auto) (0.1-0.6) K/mm3 Eos # (Auto) (0-0.3) K/mm3 Baso # (Auto) (0.0-0.1) K/mm3 Abs Immat Gran (auto) (0.00-0.031) K/mm3 Absolute Neuts (auto) (1.3-6.7) K/mm3 Absolute Nucleated RBC (0.0-0.012) K/mm3 Nucleated RBC % (0.0-0.2) % PT (11.1-14.7) Seconds INR APTT (22.3-36.8) Seconds Sodium (137-145) mmol/L Potassium (3.4-5.0) mmol/L Chloride (98-107) mmol/L Carbon Dioxide (22-30) mmol/L Anion Gap (4-12) mmol/L BUN (7-17) mg/dL Creatinine (0.7-1.0) mg/dL Estim Creat Clear Calc ml/min Estimated GFR (59 - ) Glucose (65-110) mg/dL POC Capillary Glucose (65-105) mg/dl Calcium (8.4-10.2) mg/dL Total Bilirubin (0.2-1.3) mg/dL AST (14-36) U/L ALT (6-35) U/L Alkaline Phosphatase (38-126) U/L Total Protein (6.3-8.2) g/dL Albumin (3.5-5.1) g/dL Urine Color Yellow (Yellow) Urine Appearance Clear (Clear) Urine pH 5.5 (5.0-9.0) Ur Specific [place] 1.015 (1.001-1.035) Urine Protein Negative (Negative) mg/dL Urine Glucose (UA) Negative (Negative) mg/dL Urine Ketones Negative (Negative) mg/dL Ur Blood (Man) Negative (Negative) Urine Nitrate Negative (Negative) Urine Bilirubin Negative (Negative) Urine Urobilinogen 0.2 (<2.0) mg/dL Leukocyte Esterase Rfl Negative (Negative) PRECIOUS/UL Influenza A (RT-PCR) (Negative) Influenza B (RT-PCR) (Negative) RSV (RT-PCR) (Negative) SARS-CoV-2 RNA (RT-PCR) (Negative) Imaging Data My impression: Impressions Head CT 06/14/24 15:16 IMPRESSION: 1. Likely aneurysm coils in the region of the basilar tip. No acute intracranial process. Chest X-Ray 06/14/24 16:42 IMPRESSION: 1. No acute cardiopulmonary disease. Head/Neck CTA 06/14/24 17:14 IMPRESSION: 1. Post aneurysm coiling. 2. Otherwise, unremarkable CTA of the head and neck, as detailed above. 3. Percent stenosis per NASCET criteria is 0% Radiologist's impression: Impressions Head CT 06/14/24 15:16 IMPRESSION: 1. Likely aneurysm coils in the region of the basilar tip. No acute intracranial process. Discharge Plan Discharge Patient Language: Mongolian Prescriptions: No Action aspirin 325 mg tablet 325 mg PO DAILY cholecalciferol (vitamin D3) 50 mcg (2,000 unit) capsule 50 mcg PO DAILY omeprazole 20 mg capsule,delayed release(DR/EC) 20 mg PO DAILY Qty: 90 1RF albuterol sulfate 90 mcg/actuation HFA aerosol inhaler 1 inh inhalation Q4H PRN (Reason: shortness of breath or wheezing) Qty: 6.7 0RF amlodipine [Norvasc] 2.5 mg tablet 2.5 mg PO DAILY Qty: 90 3RF liothyronine 5 mcg tablet See Rx Instructions .ROUTE .COMPLEX Qty: 90 1RF Dose Instruction: TAKE ONE TABLET BY MOUTH ONCE DAILY EVERY MORNING BEFORE MEALS DIRECTED Rx Instructions: TAKE ONE TABLET BY MOUTH ONCE DAILY EVERY MORNING BEFORE MEALS DIRECTED EXCEPT SKIP DOSE ON SUNDAYS escitalopram oxalate 10 mg tablet 10 mg PO DAILY Qty: 90 2RF levothyroxine 75 mcg tablet 75 mcg PO DAILY Qty: 90 1RF metoprolol tartrate 50 mg tablet See Rx Instructions .ROUTE .COMPLEX Qty: 180 3RF Dose Instruction: TAKE 1 TABLET EVERY 12 HOURS DIRECTED Rx Instructions: TAKE 1 TABLET EVERY 12 HOURS DIRECTED sumatriptan succinate [Imitrex] 25 mg tablet 25 mg PO .COMPLEX Qty: 10 5RF Rx Instructions: once PRN 25 mg PO; may repeat once after at least 2 hours methylphenidate HCl [Concerta] 36 mg tablet extended release 24hr 36 mg PO QAM Qty: 30 0RF Follow-up/Referrals: Almas,Liliana Thibodeaux MD [Primary Care Provider] - Quality Stroke Scale Stroke Scale 1: Stroke scale date:: 06/14/24 1a Level of consciousness: alert-0 1b Level of consciousness questions: answers none correctly-2 1c Level of consciousness commands: obeys both correctly-0 2 Best gaze: normal-0 3 Visual: no visual loss-0 4 Facial palsy: normal-0 5a Motor: left arm: no drift-0 5b Motor: right arm: no drift-0 6a Motor: left leg: no drift-0 6b Motor: right leg: no drift-0 7 Limb ataxia: absent-0 8 Sensory: normal-0 9 Best language: no aphasia-0 10 Dysarthria: normal-0 11 Extinction and inattention: no abnormality-0 Level:: 2
--- NOTE | 2024-06-14 15:08 | PC.NURSE ---
pt to CT scan via stretcher at this time
[2024-06-14 15:10] LABS: Basophils Absolute Auto 0.1 K/mm3 (0.0-0.1); Eosinophils Absolute Auto 0.2 K/mm3 (0-0.3); Eosinophils Percent Auto 2.6 % (0-4.4); Hematocrit 43.6 % (37.0-47.0); Hemoglobin 14.1 g/dL (12.0-15.0); Immature Granulocyte Absolute 0.06 K/mm3 (0.00-0.031); Immature Granulocyte Percent A 0.7 % (0-0.5); Lymphocytes Absolute Auto 2.05 K/mm3 (0.9-3.2); Lymphocytes Percent Auto 22.5 % (18.3-44.2); Mean Corpuscular HGB Conc 32.3 g/dl (32-36); Mean Corpuscular Hemoglobin 29.7 pg (26-34); Mean Platelet Volume 10.4 fl (7.4-10.4); Monocytes Absolute Auto 0.8 K/mm3 (0.1-0.6); Monocytes Percent Auto 8.8 % (2.6-8.5); Neutrophils Absolute Auto 5.9 K/mm3 (1.3-6.7); Neutrophils Percent Auto 64.4 % (45.5-73.1); Platelet Count Result 223 k/mm3 (150-375); Red Blood Count 4.74 M/mm3 (4.2-5.4); Red Cell Distribution Width 12.2 % (11.5-14.5); White Blood Count 9.1 K/mm3 (4.5-10.0)
[2024-06-14 15:22] LABS: Alanine Aminotransferase 46 U/L (6-35); Albumin Level 4.2 g/dL (3.5-5.1); Alkaline Phosphatase 75 U/L (38-126); Anion Gap 8 mmol/L (4-12); Aspartate Amino Transferase 36 U/L (14-36); Bilirubin,Total 0.4 mg/dL (0.2-1.3); Blood Urea Nitrogen 24 mg/dL (7-17); Calcium 9.1 mg/dL (8.4-10.2); Carbon Dioxide 27 mmol/L (22-30); Chloride 105 mmol/L (98-107); Estimated CRCL calculation 68 ml/min; Estimated Glomerular Filt Rate > 60; Glucose 82 mg/dL (65-110); Potassium 4.3 mmol/L (3.4-5.0); Sodium 140 mmol/L (137-145)
[2024-06-14 15:25] VITALS: O2SAT 98
[2024-06-14 15:28] LABS: INR 0.9; Prothrombin Time 12.8 Seconds (11.1-14.7)
[2024-06-14 17:07] LABS: Influenza A QL RT-PCR Negative (Negative); Influenza B QL RT-PCR Negative (Negative); RSV RNA, RT-PCR Negative (Negative); SARS-CoV-2 RNA PCR Negative (Negative)
[2024-06-14 17:10] LABS: Add Urine Microscopic? NO; Appearance Urine Clear (Clear); Bilirubin Urine Negative (Negative); Blood Urine Negative (Negative); Color Urine Yellow (Yellow); Glucose Urine UA Negative (Negative); Ketones Urine Negative (Negative); Leukocyte Esterase Ur Negative LEU/UL (Negative); Nitrate Urine Negative (Negative); Protein Urine Negative (Negative); Specific Grav Ur 1.015 (1.001-1.035); Urobilinogen Urine 0.2 mg/dL (<2.0); pH Urine 5.5 (5.0-9.0)
[2024-06-14 17:30] VITALS: BP 116/61; PULSE 62; RESP 20; O2SAT 99
[2024-06-14 18:00] VITALS: BP 117/60; PULSE 64; RESP 16; O2SAT 100
--- NOTE | 2024-06-14 18:30 | PM.IMHP ---
H&P: HPI History of Present Illness Date/Time: 06/14/24 18:30 Chief Complaint: Confusion. Narrative: This is a pleasant 63-year-old female with history of transient global amnesia, cerebral aneurysm status post coiling, migraines, hypertension, hyperlipidemia, and hypothyroidism who presented to the emergency department via private vehicle for evaluation of confusion. The patient is able to provide some history however her family provides additional information with the patient's permission. She has been having daily migraines for the past couple of weeks described as low-grade for which she has not needed to take her rescue medications. This morning she was otherwise in her usual state of health when she talked to her son on the phone at about 11:00. About an hour thereafter she sent him a text message asking him when he was going to work when he does not currently have a job. He called her back for clarification and reports that she seemed to be confused and very repetitive. She had similar symptoms 2 years ago and was diagnosed with transient global amnesia at that time. Aside from confusion and repetitive questions every few minutes, she has no current complaints and she denies vision changes, vertigo, focal weakness, paresthesias, facial droop, and difficulties speaking and swallowing. She has not had any recent increase in stress and has not partaken in any strenuous activities. No recent cold or flu symptoms. No chest pain, pleuritic pain, palpitations, or shortness of breath. She has not had any recent trauma or head injuries. In the ED: She was afebrile on arrival with stable vital signs. CMP and CBC were pretty unremarkable with the only outliers being a BUN of 24 and an ALT of 46. Urinalysis was unremarkable. She was negative for influenza, RSV, and COVID. Head CT showed no acute findings but did note the likely aneurysm coils in the region of the basilar tip. Head and neck CTA showed post aneurysm coiling but was otherwise unremarkable. Chest x-ray was also normal. She is being admitted in this setting for close monitoring and neurology consultation. Review of Systems Review of Systems: 12 systems were reviewed and are negative except for as per HPI. [facility] Past Medical History Medical History (Updated 06/15/24 @ 00:02 by Pilar Robles PA-C) Transient global amnesia Postmenopausal bleeding (09/18/17) Menopausal state Hypertension History of multiple miscarriages Allergies Anemia Arthritis Mixed hyperlipidemia Brain aneurysm Hypothyroidism Surgical History Surgical History History of cerebral aneurysm repair History of endometrial ablation History of tubal ligation History of dilation and curettage History of appendectomy History of cholecystectomy Family History Family History Father Family history of Arjay's chorea Patient's father is Hypertension Parents Grandparent Diabetes mellitus Family history of malignant neoplasm of cervix Family history of coronary artery disease Mother Parents Social History Social History (Updated 06/15/24 @ 00:02 by Pilar Robles PA-C) Social History: Surrogate medical decision maker: Igor Hammer, narciso. Code status: Full code. 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 Spiritual care concerns: No Meds Home Medications and Allergies Home Medications ?Medication ?Instructions ?Recorded ?Confirmed ?Type aspirin 325 mg tablet 325 mg PO DAILY 12/04/21 05/11/24 History cholecalciferol (vitamin D3) 50 50 mcg PO DAILY 12/04/21 05/11/24 History mcg (2,000 unit) capsule albuterol sulfate 90 mcg/actuation 1 inh inhalation Q4H PRN shortness 01/24/23 05/11/24 Rx aerosol inhaler of breath or wheezing #6.7 grams omeprazole 20 mg capsule,delayed 20 mg PO DAILY #90 caps 01/24/23 05/11/24 Rx release metoprolol tartrate 50 mg tablet See Rx Instructions .Route 10/07/23 05/11/24 Rx .COMPLEX #180 tabs amlodipine 2.5 mg tablet (Norvasc) 2.5 mg PO DAILY #90 tabs 11/21/23 05/11/24 Rx sumatriptan succinate 25 mg tablet 25 mg PO .COMPLEX #10 tabs 12/29/23 05/11/24 Rx (Imitrex) escitalopram oxalate 10 mg tablet 10 mg PO DAILY #90 tabs 05/11/24 05/11/24 Rx levothyroxine 75 mcg tablet 75 mcg PO DAILY #90 tabs 05/11/24 05/11/24 Rx liothyronine 5 mcg tablet See Rx Instructions .Route 05/11/24 05/11/24 Rx .COMPLEX #90 tabs methylphenidate HCl 36 mg 36 mg PO QAM #30 tabs 06/14/24 Rx tablet,extended release 24 hr (Concerta) Allergies Allergy/AdvReac Type Severity Reaction Status Date / Time No Known Allergies Allergy Verified 05/11/24 09:11 Vital Signs Vital Signs - 24 hr 06/14/24 14:35 06/14/24 14:59 06/14/24 15:25 Temperature 98.1 F Pulse Rate 65 59 L Respiratory Rate 18 20 Blood Pressure 147/76 H 142/72 H Pulse Oximetry 99 100 98 Oxygen Delivery Room Air Room Air Room Air Exam Narrative: General: Well-developed female sitting up in bed in no acute distress. Weight: 81 kg. BMI: 30.7. HEENT: Normocephalic, atraumatic. PERRL, EOMI. Sclera anicteric. Oral mucosa moist. Oropharynx clear. Neck: Supple. No thyromegaly or bruits. Respiratory: Lungs are clear to auscultation bilaterally. Cardiovascular: Regular rate and rhythm with S1-S2. Soft murmur at the sternal border. Gastrointestinal: Abdomen is soft, nontender, and nondistended with positive bowel sounds. Skin: Warm and dry. No rash or lesions on limited exam. Extremities: No cyanosis, clubbing, or edema. Radial and pedal pulses intact. Neurological: Alert and oriented to name, date of , year, and name of president. She is aware that she is at the hospital. She does not remember having any phone conversations with her son today for sending in the text message. She is very repetitive and continues to ask the same question and is surprised to hear what we tell her each time. Cranial nerves 2-12 are grossly intact. Her speech is clear and fluent. There is no facial asymmetry or pronator drift. Normal [id number]. Strength is 5 of 5 in upper and lower extremities. Her gait was not assessed. Psychiatric: Pleasant and cooperative. Appropriate mood. Continues to have amnesia regarding events today. H&P: Results Labs Labs: Short CBC 06/14/24 Range/Units 15:05 WBC 9.1 (4.5-10.0) K/mm3 Hgb 14.1 (12.0-15.0) g/dL Hct 43.6 (37.0-47.0) % Plt Count 223 (150-375) k/mm3 BMP 06/14/24 15:05 Sodium 140 Potassium 4.3 Chloride 105 Carbon Dioxide 27 BUN 24 H Creatinine 0.76 Glucose 82 Calcium 9.1 Liver Function 06/14/24 Range/Units 15:05 Total Bilirubin 0.4 (0.2-1.3) mg/dL AST 36 (14-36) U/L ALT 46 H (6-35) U/L Alkaline Phosphatase 75 (38-126) U/L Albumin 4.2 (3.5-5.1) g/dL Urine 06/14/24 Range/Units 16:59 Urine Color Yellow (Yellow) Urine Appearance Clear (Clear) Urine pH 5.5 (5.0-9.0) Ur Specific [place] 1.015 (1.001-1.035) Urine Protein Negative (Negative) mg/dL Urine Glucose (UA) Negative (Negative) mg/dL Assessment and Plan Assessment and plan (1) Global amnesia: Code(s): R41.3 - Other amnesia Status: Acute (2) Hypertension: Code(s): I10 - Essential (primary) hypertension Status: Acute (3) Hypothyroidism: Qualifiers: Hypothyroidism type: acquired Qualified Code(s): E03.9 - Hypothyroidism, unspecified Code(s): E03.9 - Hypothyroidism, unspecified Status: Acute (4) Migraines: Code(s): G43.909 - Migraine, unspecified, not intractable, without status migrainosus Status: Acute Plan The patient presented to the emergency department for evaluation of confusion as detailed in HPI. Labs, imaging, EKG, and all reports were personally reviewed. Head CT and CTA of the head and neck were unremarkable. She continues to have global amnesia and is very repetitive. I suspect she once again has transient global amnesia given the history of the same. She has been having migraines every day for the last several weeks though I am not sure the two correlate. She will be monitor on telemetry with frequent neurologic checks. Neurology was consulted by the ED physician and their input is appreciated. Vital signs were reviewed and they are stable. Her home medications will be reviewed and resumed as appropriate. Findings and treatment plan were discussed with the patient. Questions were solicited and answered to satisfaction. The patient's medical management will be taken over by the hospitalist team in a.m. Quality VTE Prophylaxis VTE prophylaxis: mechanical ordered If No VTE Prophylaxis Answer both mechanical and pharmacologic: Reason no pharmacologic proph: low risk/not indicated The patient has been admitted under observation status. Hospitalist MIPS Advance Care Plan I have confirmed that the patient's Advanced Care Plan is present, code status is documented, or surrogate decision maker is listed in patient medical record.: Yes Medication Reconciliation I have utilized all available resources to obtain, update and review the patients current medications (includes all prescriptions, OTC, herbals, cannabis, and nutritional supplements).: Yes
[2024-06-14 18:35] VITALS: BP 114/64; PULSE 68; RESP 17; O2SAT 98
[2024-06-14] MEDS: HYDROmorphone HCL INJ (*CRX) 1 MG/ML SYR IV PUSH (23:25)
[2024-06-15] VITALS (8 sets, daily range): BP systolic 105–117; BP diastolic 55–71; PULSE 64–92; RESP 13–20; TEMP 36.9; O2SAT 94–99; BMI 30.6
[2024-06-15 06:32] LABS: Basophils Absolute Auto 0.1 K/mm3 (0.0-0.1); Basophils Percent Auto 0.9 % (0.2-1.2); Eosinophils Absolute Auto 0.2 K/mm3 (0-0.3); Eosinophils Percent Auto 2.1 % (0-4.4); Hematocrit 42.1 % (37.0-47.0); Hemoglobin 13.1 g/dL (12.0-15.0); Immature Granulocyte Absolute 0.06 K/mm3 (0.00-0.031); Immature Granulocyte Percent A 0.7 % (0-0.5); Lymphocytes Absolute Auto 1.79 K/mm3 (0.9-3.2); Mean Corpuscular HGB Conc 31.1 g/dl (32-36); Mean Corpuscular Hemoglobin 29.4 pg (26-34); Mean Corpuscular Volume 94.4 fl (80-100); Mean Platelet Volume 10.4 fl (7.4-10.4); Monocytes Absolute Auto 0.7 K/mm3 (0.1-0.6); Monocytes Percent Auto 8.2 % (2.6-8.5); Neutrophils Absolute Auto 5.4 K/mm3 (1.3-6.7); Neutrophils Percent Auto 66.1 % (45.5-73.1); Platelet Count Result 195 k/mm3 (150-375); Red Blood Count 4.46 M/mm3 (4.2-5.4); Red Cell Distribution Width 12.3 % (11.5-14.5); White Blood Count 8.1 K/mm3 (4.5-10.0)
[2024-06-15] MEDS: ACETAMINOPHEN 325 MG TABLET 650 MG PO ×2 (06:43→15:28)
[2024-06-15 06:46] LABS: Anion Gap 5 mmol/L (4-12); Blood Urea Nitrogen 18 mg/dL (7-17); Calcium 8.5 mg/dL (8.4-10.2); Carbon Dioxide 30 mmol/L (22-30); Chloride 105 mmol/L (98-107); Estimated CRCL calculation 69 ml/min; Estimated Glomerular Filt Rate > 60; Glucose 89 mg/dL (65-110); Magnesium 2.1 mg/dL (1.6-2.3); Potassium 4.3 mmol/L (3.4-5.0); Sodium 140 mmol/L (137-145)
--- NOTE | 2024-06-15 07:14 | PC.NURSE ---
This RN took over care of patient. Patient resting comfortably at this time. Breakfast tray ordered for patient
--- NOTE | 2024-06-15 10:16 | PC.NURSE ---
Patient placed in hospital bed for comfort.
--- NOTE | 2024-06-15 10:24 | PC.NURSE ---
patient ambulated to the restroom with steady gate
--- NOTE | 2024-06-15 12:26 | PC.NURSE ---
Meal tray ordered for pt.
--- NOTE | 2024-06-15 15:16 | PC.NURSE ---
This patient, Consuelo Duke, was admitted to Medical Room 341-01. Patient/family oriented to hospital policies and general routines including ID bracelet, bed and alarms, visiting hours, pain management, procedures, bathroom and other care routines, personal items, smoking policy, room service/diet, and visiting hours. Information on how to activate the Rapid Response Team has been discussed. Patient/Family are encouraged to report perceived risks to care and to ask questions if they do not understand what they are told or what they should do.
--- NOTE | 2024-06-15 18:15 | P.PNIM_ITS ---
Progress Note: A&P Assessment and Plan (1) Global amnesia: Code(s): R41.3 - Other amnesia Status: Acute (2) Hypertension: Code(s): I10 - Essential (primary) hypertension Status: Acute (3) Hypothyroidism: Qualifiers: Hypothyroidism type: acquired Qualified Code(s): E03.9 - Hypothyroidism, unspecified Code(s): E03.9 - Hypothyroidism, unspecified Status: Acute (4) Migraines: Code(s): G43.909 - Migraine, unspecified, not intractable, without status migrainosus Status: Acute Plan This is a pleasant 63-year-old female with history of transient global amnesia, cerebral aneurysm status post coiling, migraines, hypertension, hyperlipidemia, and hypothyroidism who presented to the emergency department via private vehicle for evaluation of confusion. The patient is able to provide some history however her family provides additional information with the patient's permission. She has been having daily migraines for the past couple of weeks described as low- grade for which she has not needed to take her rescue medications. This morning she was otherwise in her usual state of health when she talked to her son on the phone at about 11:00. About an hour thereafter she sent him a text message asking him when he was going to work when he does not currently have a job. He called her back for clarification and reports that she seemed to be confused and very repetitive. She had similar symptoms 2 years ago and was diagnosed with transient global amnesia at that time. Aside from confusion and repetitive questions every few minutes, she has no current complaints and she denies vision changes, vertigo, focal weakness, paresthesias, facial droop, and difficulties speaking and swallowing. She has not had any recent increase in stress and has not partaken in any strenuous activities. No recent cold or flu symptoms. No chest pain, pleuritic pain, palpitations, or shortness of breath. She has not had any recent trauma or head injuries. In the ED: She was afebrile on arrival with stable vital signs. CMP and CBC were pretty unremarkable with the only outliers being a BUN of 24 and an ALT of 46. Urinalysis was unremarkable. She was negative for influenza, RSV, and COVID. Head CT showed no acute findings but did note the likely aneurysm coils in the region of the basilar tip. Head and neck CTA showed post aneurysm coiling but was otherwise unremarkable. Chest x-ray was also normal. Suspected transient global amnesia. Back to her baseline now. Exacerbated by recent stressor. Neurology Consultation has been obtained awaiting the recommendations. History of transient global history of cerebral aneurysm status post coiling History of migraines Hypertension Hyperlipidemia Hypothyroidism TSH is normal DVT prophylaxis SCDs Code status full code Subjective Date/time seen: 06/15/24 18:15 Interval history: No overnight events. Denies any complaints. Review of Systems Review of Systems: All systems reviewed & are unremarkable except as noted in HPI and below Exam Narrative: General: Well-developed female sitting up in bed in no acute distress. HEENT: Normocephalic, atraumatic. PERRL, EOMI. Sclera anicteric. Oral mucosa moist. Oropharynx clear. Neck: Supple. No thyromegaly or bruits. Respiratory: Lungs are clear to auscultation bilaterally. No respiratory distress Cardiovascular: Regular rate and rhythm with S1-S2. Soft murmur at the sternal border. Gastrointestinal: Abdomen is soft, nontender, and nondistended with positive bowel sounds. Skin: Warm and dry. No rash or lesions on limited exam. Extremities: No cyanosis, clubbing, or edema. Radial and pedal pulses intact. Neurological: Alert and oriented to time place and person no focal deficits Psychiatric: Pleasant and cooperative. Appropriate mood. Objective Data Vital Signs Vital Signs: Vital Signs - 24 hr 06/14/24 18:35 06/15/24 01:22 06/15/24 04:17 Pulse Rate 68 74 67 Respiratory Rate 17 14 15 Blood Pressure 114/64 106/55 L 107/71 Pulse Oximetry 98 99 94 06/15/24 07:00 06/15/24 09:24 06/15/24 11:54 Pulse Rate 64 78 75 Respiratory Rate 13 20 16 Blood Pressure 109/55 L 105/58 L 113/58 L Pulse Oximetry 97 95 97 06/15/24 14:17 Pulse Rate 83 Respiratory Rate 16 Blood Pressure 117/60 Pulse Oximetry 97 Meds/Results Medications: Active Medications Generic Name Dose Route Start Last Admin Trade Name Freq PRN Reason Stop Dose Admin Acetaminophen 650 mg 06/14/24 18:00 06/15/24 15:28 Acetaminophen 325 Mg Tablet PO 650 mg Q4H PRN Administration Mild Pain (1-3) or Fever Radiology Results: ITS Impressions Head CT 06/14/24 15:16 IMPRESSION: 1. Likely aneurysm coils in the region of the basilar tip. No acute intracranial process. Chest X-Ray 06/14/24 16:42 IMPRESSION: 1. No acute cardiopulmonary disease. Head/Neck CTA 06/14/24 17:14 IMPRESSION: 1. Post aneurysm coiling. 2. Otherwise, unremarkable CTA of the head and neck, as detailed above. 3. Percent stenosis per NASCET criteria is 0% Labs Labs: Laboratory Results - last 24 hr 06/15/24 06:26 WBC 8.1 RBC 4.46 Hgb 13.1 Hct 42.1 MCV 94.4 MCH 29.4 MCHC 31.1 L RDW 12.3 Plt Count 195 MPV 10.4 Immature Gran % (Auto) 0.7 H Neut % (Auto) 66.1 Lymph % (Auto) 22.0 [place] % (Auto) 8.2 Eos % (Auto) 2.1 Baso % (Auto) 0.9 Lymph # (Auto) 1.79 [place] # (Auto) 0.7 H Eos # (Auto) 0.2 Baso # (Auto) 0.1 Abs Immat Gran (auto) 0.06 H Absolute Neuts (auto) 5.4 Absolute Nucleated RBC 0.000 Nucleated RBC % 0.0 Sodium 140 Potassium 4.3 Chloride 105 Carbon Dioxide 30 Anion Gap 5 BUN 18 H Creatinine 0.74 Estim Creat Clear Calc 69 Estimated GFR > 60 Glucose 89 Calcium 8.5 Magnesium 2.1 TSH (Reflex) 1.400
[2024-06-15] MEDS: METOPROLOL TARTRATE 50 MG TAB BY MOUTH (21:01)
[2024-06-15] MEDS: ESCITALOPRAM OXALATE 10 MG TABLET PO (21:01)
[2024-06-16] VITALS (8 sets, daily range): BP systolic 105–110; BP diastolic 60–70; PULSE 56–72; RESP 18–19; TEMP 36.6; O2SAT 94–98
[2024-06-16] MEDS: LEVOTHYROXINE SODIUM 75 MCG TABLET PO (05:59)
[2024-06-16] MEDS: SUMAtriptan SUCCINATE 25 MG TABLET PO (06:00)
[2024-06-16] MEDS: LIOTHYRONINE SODIUM 5 MCG TABLET BY MOUTH (08:26)
[2024-06-16] MEDS: PANTOPRAZOLE 40 MG TABLET PO (08:26)
[2024-06-16] MEDS: ASPIRIN 325 MG TABLET PO (08:26)
[2024-06-16] MEDS: CHOLECALCIFEROL 1,000 UNITS TABLET 2000 UNITS PO (08:26)
[2024-06-16] MEDS: METOPROLOL TARTRATE 50 MG TAB BY MOUTH (08:27)
--- NOTE | 2024-06-16 10:40 | WPDNEUROLOGY ---
Neurology EEG Report General Information Date of Study: 06/16/24 TEST eeg DIAGNOSIS transient global amnesia. CONDITION OF RECORDING Awake, drowsy and asleep. EEG NUMBER [id number] CLINICAL HISTORY Patient reports she got up 2 days ago feeling fine then family noted she was acting strangely. She has completely lost about 10hours of that day. Had a similar episode a year ago and feels fine now. EEG DESCRIPTION Basic resting occipital frequency consists of well-organized low voltage 9 to 11 hertz per 2nd alpha admixed with low-voltage 15 to 18 hertz per 2nd beta activity. posterior alpha rhythm is symmetrical he blocked when the eyes are opened. Low-voltage alpha beta and theta activity seen to the evolving sleep with bilateral symmetrical sleep spindles. Photic stimulation not done. Hyperventilation not done. Non paroxysmal. Nonfocal. Non lateralizing. IMPRESSION Normal record.
--- NOTE | 2024-06-16 10:46 | P.CONNEU_ITS ---
Assessment and Plan Assessment and plan (1) Migraines: Qualifiers: Migraine type: chronic migraine (15 or more days per month) without aura Code(s): G43.909 - Migraine, unspecified, not intractable, without status migrainosus Status: Acute (2) Transient global amnesia: Code(s): G45.4 - Transient global amnesia Status: Acute Plan 1. Global amnesia 2. Hypothyroidism 3. Hypertension 4. History of migraines 5. History of aneurysm clipping at the basal tip. 6. With negative repeat CTA, negative CT scan of the head, and fairly unremarkable examination after thorough discussion with her regarding the pros and cons of the chronic low- grade mild headaches will continue on escitalopram 10mg daily but no other addition of any medications. I discussed with her the situation toward orally. Consult date: 06/16/24 HPI: Consuelo Duke is a 63 year old female has been admitted to the hospital through the emergency room where she was brought by her son in the private car because of the acute changes in the mental status. She was last seen at her normal pace of health at 11:00 a.m. but by 1:30 a.m. patient texted her son for some questions and her son noted that she was confused on arrival in the emergency room she was found to have no generalize symptomatology but facies family reported to the ER physician that she has had same episode about 2 years ago when she was told that she had transient global amnesia. patient does have a history of cerebral aneurysm in the past which has been taken care. At present she carries the diagnosis of transient global amnesia, cerebral aneurysm for which coiling has been done, migraine, hypertension, hyperlipidemia, and hypothyroidism. She gave the history of having almost daily migraines for the last couple of weeks though she did not require the rescue medications for the complaints of confusion and septated questions every few minutes she was brought to the hospital for further evaluation she has not had any specific recent increase under stress and has not taken any part in any statin OS activities. In the emergency room she was found to have normal vital signs, routine lab studies were unremarkable with BUN of 24 and she was negative for the influenza, RSV, and COVID. CT scan did not reveal any bleed and the CTA documented aneurysmal coile in the region of the basilar tip. Chest x-ray was negative and she was admitted to the hospital for further observations. Her past history is also consistent with hypertension, mixed hyperlipidemia, and hypothyroidism. She is never a smoker drinks alcohol occasionally and her medications based does include aspirin 325mg daily the subtle pram 10mg and methylphenidate 36mg daily every morning extended release. [facility] Past Medical History Medical History Transient global amnesia Postmenopausal bleeding (09/18/17) Menopausal state Hypertension History of multiple miscarriages Allergies Anemia Arthritis Mixed hyperlipidemia Brain aneurysm Hypothyroidism Surgical History Surgical History History of cerebral aneurysm repair History of endometrial ablation History of tubal ligation History of dilation and curettage History of appendectomy History of cholecystectomy Family History Family History Father Family history of Marvin's chorea Patient's father is Hypertension Parents Grandparent Diabetes mellitus Family history of malignant neoplasm of cervix Family history of coronary artery disease Mother Parents Social History Social History Social History: Surrogate medical decision maker: Igor Hammer, narciso. Code status: Full code. Smoking status: Never smoker Second hand tobacco smoke exposure: No Alcohol intake: current Alcohol use details: Occasionally Substance use: never Substance use type: does not use Do You Feel Safe in your Home?: Yes Lack of Transportation: No Lack of Food: Never True Current Housing: I Have Housing Concerned About Future Housing: No Difficulty Paying Gas/Electric Bills: No Difficulty Paying for Meds: No Currently Unemployed: No Education: Bachelor's Degree Difficulty w/ Childcare or Family Care: No Living arrangements: with family Occupation/Education: occupation Additional occupation/education comments: [employer] Help [employer] Spiritual care concerns: No Meds Home Medications and Allergies Home Medications ?Medication ?Instructions ?Recorded ?Confirmed ?Type aspirin 325 mg tablet 325 mg PO DAILY 12/04/21 06/15/24 History cholecalciferol (vitamin D3) 50 50 mcg PO DAILY 12/04/21 06/15/24 History mcg (2,000 unit) capsule albuterol sulfate 90 mcg/actuation 1 inh inhalation Q4H PRN shortness 01/24/23 06/15/24 Rx aerosol inhaler of breath or wheezing #6.7 grams omeprazole 20 mg capsule,delayed 20 mg PO DAILY #90 caps 01/24/23 06/15/24 Rx release metoprolol tartrate 50 mg tablet See Rx Instructions .Route 10/07/23 06/15/24 Rx .COMPLEX #180 tabs amlodipine 2.5 mg tablet (Norvasc) 2.5 mg PO DAILY #90 tabs 11/21/23 06/15/24 Rx sumatriptan succinate 25 mg tablet 25 mg PO .COMPLEX #10 tabs 12/29/23 06/15/24 Rx (Imitrex) escitalopram oxalate 10 mg tablet 10 mg PO DAILY #90 tabs 05/11/24 06/15/24 Rx levothyroxine 75 mcg tablet 75 mcg PO DAILY #90 tabs 05/11/24 06/15/24 Rx liothyronine 5 mcg tablet See Rx Instructions .Route 05/11/24 06/15/24 Rx .COMPLEX #90 tabs methylphenidate HCl 36 mg 36 mg PO QAM #30 tabs 06/14/24 06/15/24 Rx tablet,extended release 24 hr (Concerta) Allergies Allergy/AdvReac Type Severity Reaction Status Date / Time No Known Allergies Allergy Verified 06/15/24 07:18 Vital Signs Vital Signs - 24 hr 06/15/24 11:54 06/15/24 14:17 06/15/24 20:00 Temperature Pulse Rate 75 83 92 Respiratory Rate 16 16 Blood Pressure 113/58 L 117/60 Pulse Oximetry 97 97 Oxygen Delivery 06/15/24 20:00 06/15/24 21:37 06/16/24 00:00 Temperature 36.9 C Pulse Rate 87 68 Respiratory Rate 20 Blood Pressure 110/62 Pulse Oximetry 98 Oxygen Delivery Room Air 06/16/24 04:00 06/16/24 06:00 06/16/24 08:00 Temperature 36.6 C Pulse Rate 60 64 Respiratory Rate 18 Blood Pressure 105/60 Pulse Oximetry 94 Oxygen Delivery Room Air 06/16/24 08:27 Temperature Pulse Rate 63 Respiratory Rate Blood Pressure Pulse Oximetry Oxygen Delivery Exam 2 Narrative: Exam today revealed her to be awake alert cooperative in no obvious acute distress, her speech was not dysphasic not dysarthric not dysphonic, she was oriented in right and left, he was able to give the past history account very well, but normocephalic ear nose throat exam was normal neck was supple heart was regular lungs clear abdomen is soft neurologically normal mental status normal speech normal cranial examination motor and sensory examination reflexes symmetrical plantars downgoing. Results Labs 06/15/24 06:26 06/15/24 06:26
[2024-06-16] MEDS: amLODIPine BESYLATE 2.5 MG TABLET PO (13:18)
[2024-06-16] MEDS: ACETAMINOPHEN 325 MG TABLET 650 MG PO (13:21)
--- NOTE | 2024-06-16 13:46 | PM.IMPN ---
Subjective Date/time seen: 06/16/24 13:46 Objective Data Vital Signs Vital Signs: Vital Signs - 24 hr 06/15/24 14:17 06/15/24 20:00 06/15/24 20:00 Temperature Pulse Rate 83 92 Respiratory Rate 16 Blood Pressure 117/60 Pulse Oximetry 97 Oxygen Delivery Room Air 06/15/24 21:37 06/16/24 00:00 06/16/24 04:00 Temperature 98.4 F Pulse Rate 87 68 60 Respiratory Rate 20 Blood Pressure 110/62 Pulse Oximetry 98 Oxygen Delivery 06/16/24 06:00 06/16/24 08:00 06/16/24 08:00 Temperature 97.8 F Pulse Rate 64 56 L Respiratory Rate 18 Blood Pressure 105/60 Pulse Oximetry 94 Oxygen Delivery Room Air 06/16/24 08:27 Temperature Pulse Rate 63 Respiratory Rate Blood Pressure Pulse Oximetry Oxygen Delivery Intake/Output Intake/Output: Intake & Output 06/13/24 06/14/24 06/15/24 06/16/24 23:59 23:59 23:59 23:59 Intake Total 240 957 Balance 240 957 Meds/Results Medications: Active Medications Generic Name Dose Route Start Last Admin Trade Name Freq PRN Reason Stop Dose Admin Acetaminophen 650 mg 06/14/24 18:00 06/16/24 13:21 Acetaminophen 325 Mg Tablet PO 650 mg Q4H PRN Administration Mild Pain (1-3) or Fever Albuterol 1 puff 06/15/24 18:19 Albuterol Sulfate (*Sp) Aerosol 1 Puff INHALATION Q4H PRN shortness of breath or wheezing Amlodipine Besylate 2.5 mg 06/16/24 14:00 06/16/24 13:18 Amlodipine Besylate 2.5 Mg Tablet PO 2.5 mg 1400 LINDY Administration Aspirin 325 mg 06/16/24 09:00 06/16/24 08:26 Aspirin 325 Mg Tablet PO 325 mg DAILY LINDY Administration Escitalopram Oxalate 10 mg 06/15/24 21:00 06/15/24 21:01 Escitalopram Oxalate 10 Mg Tablet PO 10 mg HS LINDY Administration Escitalopram Oxalate 10 mg 06/17/24 09:00 Escitalopram Oxalate 10 Mg Tablet PO DAILY LINDY Levothyroxine Sodium 75 mcg 06/16/24 06:30 06/16/24 05:59 Levothyroxine Sodium 75 Mcg Tablet PO 75 mcg DAILY@0630 LINDY Administration Liothyronine Sodium 5 mcg 06/16/24 08:00 06/16/24 08:26 Liothyronine Sodium 5 Mcg Tablet BY MOUTH 5 mcg [id number] LINDY Administration Metoprolol Tartrate 50 mg 06/15/24 21:00 06/16/24 08:27 Metoprolol Tartrate 50 Mg Tab BY MOUTH 50 mg Q12HR LINDY Administration Pantoprazole Sodium 40 mg 06/16/24 09:00 06/16/24 08:26 Pantoprazole 40 Mg Tablet PO 40 mg QAM LINDY Administration Sumatriptan Succinate 25 mg 06/15/24 18:20 06/16/24 06:00 Sumatriptan Succinate 25 Mg Tablet PO 25 mg PRN PRN Administration Migraine Headache Vitamin D 2,000 units 06/16/24 09:00 06/16/24 08:26 Cholecalciferol 1,000 Units Tablet PO 2,000 units DAILY LINDY Administration Radiology Results: ITS Impressions Head CT 06/14/24 15:16 IMPRESSION: 1. Likely aneurysm coils in the region of the basilar tip. No acute intracranial process. Chest X-Ray 06/14/24 16:42 IMPRESSION: 1. No acute cardiopulmonary disease. Head/Neck CTA 06/14/24 17:14 IMPRESSION: 1. Post aneurysm coiling. 2. Otherwise, unremarkable CTA of the head and neck, as detailed above. 3. Percent stenosis per NASCET criteria is 0%
--- NOTE | 2024-06-16 16:19 | PM.DS ---
DS: Admitting Diagnosis Discharge Date 06/16/2024 Admitting Diagnosis Metabolic encephalopathy DS: Discharge Diagnosis Discharge Diagnosis (1) Global amnesia: Code(s): R41.3 - Other amnesia Status: Acute (2) Hypertension: Code(s): I10 - Essential (primary) hypertension Status: Acute (3) Hypothyroidism: Qualifiers: Hypothyroidism type: acquired Qualified Code(s): E03.9 - Hypothyroidism, unspecified Code(s): E03.9 - Hypothyroidism, unspecified Status: Acute (4) Migraines: Qualifiers: Migraine type: chronic migraine (15 or more days per month) without aura Code(s): G43.909 - Migraine, unspecified, not intractable, without status migrainosus Status: Acute DS: Summary Hospital Course Hospital Course: 63-year-old female with history of transient global amnesia, cerebral aneurysm status post coiling, migraines, hypertension, hyperlipidemia, and hypothyroidism who presented to the emergency department via private vehicle for evaluation of confusion. The patient is able to provide some history however her family provides additional information with the patient's permission. She has been having daily migraines for the past couple of weeks described as low-grade for which she has not needed to take her rescue medications. This morning she was otherwise in her usual state of health when she talked to her son on the phone at about 11:00. About an hour thereafter she sent him a text message asking him when he was going to work when he does not currently have a job. He called her back for clarification and reports that she seemed to be confused and very repetitive. She had similar symptoms 2 years ago and was diagnosed with transient global amnesia at that time. Aside from confusion and repetitive questions every few minutes, she has no current complaints and she denies vision changes, vertigo, focal weakness, paresthesias, facial droop, and difficulties speaking and swallowing. She has not had any recent increase in stress and has not partaken in any strenuous activities. No recent cold or flu symptoms. No chest pain, pleuritic pain, palpitations, or shortness of breath. She has not had any recent trauma or head injuries. In the ED: She was afebrile on arrival with stable vital signs. CMP and CBC were pretty unremarkable with the only outliers being a BUN of 24 and an ALT of 46. Urinalysis was unremarkable. She was negative for influenza, RSV, and COVID. Head CT showed no acute findings but did note the likely aneurysm coils in the region of the basilar tip. Head and neck CTA showed post aneurysm coiling but was otherwise unremarkable. Chest x-ray was also normal. She is being admitted in this setting for close monitoring and neurology consultation. Suspected transient global amnesia. Back to her baseline now. Exacerbated by recent stressor. I assumed care on 06/16. Patient reports doing well. AAO x 4. Evaluated by neurologist. Agrees with discharging the patient today. He did not recommend adding any other medication. EEG was performed. Please read the full report. Patient needs to follow-up with the neurologist within a week upon discharge. Status at Discharge Cognitive/behavioral status at discharge: Stable Time Spent with Patient Time attestation: Total time spent providing and/or coordinating discharge services: 45 minutes Exam Narrative: General: Well-developed female sitting up in bed in no acute distress. HEENT: Normocephalic, atraumatic. PERRL, EOMI. Sclera anicteric. Oral mucosa moist. Oropharynx clear. Neck: Supple. No thyromegaly or bruits. Respiratory: Lungs are clear to auscultation bilaterally. No respiratory distress Cardiovascular: Regular rate and rhythm with S1-S2. Soft murmur at the sternal border. Gastrointestinal: Abdomen is soft, nontender, and nondistended with positive bowel sounds. Skin: Warm and dry. No rash or lesions on limited exam. Extremities: No cyanosis, clubbing, or edema. Radial and pedal pulses intact. Neurological: Alert and oriented to time place and person no focal deficits Psychiatric: Pleasant and cooperative. Appropriate mood. Discharge Plan Discharge Attending physician on discharge: Mychal Schaeffer Consulting providers: Osiris Chen Discharging Clinician: Mychal Schaeffer Anticipated Discharge Date/Time: 06/16/24 16:16 Patient Disposition: Home, Self-Care Activity: as tolerated Diet: regular Discharge Instructions: Needs to follow up with Neurology in a week. Take precautions to avoid falls. Rise slowly from a lying or sitting position. Pause before standing or walking. Contact your doctor or call 911 and come to the Emergency Room if you have any type of trauma, lightheadedness with standing or other worrisome symptoms. Avoid NSAIDs (ibuprofen, naproxen, Aleve). Tylenol is safe to take. Follow-up with your primary care provider in 1-2 weeks. Please call for appointment. Thank you for using [facility] for your health care needs. Patient Instructions: Antibiotic Form Patient Language: Salvadorean Stand Alone Forms: General Discharge Information Follow-up/Referrals: Osiris Chen MD [Physician] - Almas,Liliana Thibodeaux MD [Primary Care Provider] - Discharge Medications: Continued aspirin 325 mg tablet 325 mg PO DAILY cholecalciferol (vitamin D3) 50 mcg (2,000 unit) capsule 50 mcg PO DAILY omeprazole 20 mg capsule,delayed release(DR/EC) 20 mg PO DAILY Qty: 90 1RF albuterol sulfate 90 mcg/actuation HFA aerosol inhaler 1 inh inhalation Q4H PRN (Reason: shortness of breath or wheezing) Qty: 6.7 0RF amlodipine [Norvasc] 2.5 mg tablet 2.5 mg PO DAILY Qty: 90 3RF liothyronine 5 mcg tablet See Rx Instructions .ROUTE .COMPLEX Qty: 90 1RF Dose Instruction: TAKE ONE TABLET BY MOUTH ONCE DAILY EVERY MORNING BEFORE MEALS DIRECTED Rx Instructions: TAKE ONE TABLET BY MOUTH ONCE DAILY EVERY MORNING BEFORE MEALS DIRECTED EXCEPT SKIP DOSE ON SUNDAYS escitalopram oxalate 10 mg tablet 10 mg PO DAILY Qty: 90 2RF levothyroxine 75 mcg tablet 75 mcg PO DAILY Qty: 90 1RF metoprolol tartrate 50 mg tablet See Rx Instructions .ROUTE .COMPLEX Qty: 180 3RF Dose Instruction: TAKE 1 TABLET EVERY 12 HOURS DIRECTED Rx Instructions: TAKE 1 TABLET EVERY 12 HOURS DIRECTED sumatriptan succinate [Imitrex] 25 mg tablet 25 mg PO .COMPLEX Qty: 10 5RF Rx Instructions: once PRN 25 mg PO; may repeat once after at least 2 hours methylphenidate HCl [Concerta] 36 mg tablet extended release 24hr 36 mg PO QAM Qty: 30 0RF Date of admission: 06/14/24 18:00 Primary Care Provider: Almas,Liliana Thibodeaux Admitting Provider: Meaghan Castellanos Attending physician on admission: Meaghan Castellanos Condition: Stable
== END 2024-06-16 16:55 | disposition home or self-care (01) ==
LOC: ANHED 16:30 → ANH3MED 06-15 13:51 → ANH3MEDSUR 06-17 07:11
PROVIDERS: Physician Assistant; Student in an Organized Health Care Education/Training Program; Admitting Provider Internal Medicine; Emergency Provider Emergency Medicine; PCP Family Medicine; Visit Provider General Practice
DX: G45.4 Transient global amnesia (principal); I10 Essential (primary) hypertension; E03.9 Hypothyroidism, unspecified; G43.909 Migraine, unspecified, not intractable, without status migrainosus; E78.2 Mixed hyperlipidemia; Z78.0 Asymptomatic menopausal state; Z86.79 Personal history of other diseases of the circulatory system; Z20.822 Contact with and (suspected) exposure to COVID-19; Z98.890 Other specified postprocedural states; Z79.82 Long term (current) use of aspirin; Z79.51 Long term (current) use of inhaled steroids; Z79.899 Other long term (current) drug therapy
CPT/HCPCS: 36415; 70450; 70496; 70498; 71045; 80048; 80053; 81003; 82948; 83735; 84443; 85025; 85610; 85730; 87637; 93005; 95816; 96374; 99285; A9270; G0378; J1171; Q9967